=== PATIENT | female | born 1965 ===

== ENCOUNTER 2016-12-14 22:13 | Emergency (ER) | payer MEDICAID ==
[2016-12-14 22:19] VITALS: BP 153/77; PULSE 80; RESP 16; TEMP 97.9; O2SAT 98
[2016-12-14] MEDS ORDERED: Sodium Chloride 0.9% 1,000 ML IV STA (23:06)
--- NOTE | 2016-12-14 23:12 | ED PDOC ---
HPI: Abdomen Time Seen by Provider: 12/14/16 22:41 Chief Complaint (Nursing): Abdominal Pain Chief Complaint (Provider): abdominal pain History Per: Patient History/Exam Limitations: no limitations Onset/Duration Of Symptoms: Days (1) Current Symptoms Are (Timing): Still Present Location Of Pain/Discomfort: Diffuse Quality Of Discomfort: Cramping, "Pain" Associated Symptoms: Nausea, Diarrhea Additional History Per: Patient Additional Complaint(s): 51 y/o female presents for eval of diffuse abdominal pain x 1 day. PAtient states pain started after eating lunch. Associated nausea, diarrhea. Denies fever, vomiting, dysuria, hematuria, vaingal bleeding/discharge. Past Medical History Reviewed: Historical Data, Nursing Documentation, Vital Signs Vital Signs: Last Vital Signs Temp 97.9 F 12/14/16 22:17 Pulse 80 12/14/16 22:17 Resp 16 12/14/16 22:17 BP 153/77 H 12/14/16 22:17 Pulse Ox 98 12/14/16 23:12 - Medical History PMH: Depression, Hypothyroidism - Surgical History Other surgeries: hysterectomy - Family History Family History: States: Unknown Family Hx - Living Arrangements Living Arrangements: With Family - Home Medications Home Medications: Ambulatory Orders Medication Instructions Recorded Dicyclomine [Bentyl] 20 mg PO TID #21 tab 12/15/16 Ondansetron ODT [Zofran ODT] 4 mg PO Q8 PRN #10 odt 12/15/16 - Allergies Allergies/Adverse Reactions: Allergies Allergy/AdvReac Type Severity Reaction Status Date / Time No Known Allergies Allergy Verified 12/14/16 22:17 Review of Systems ROS Statement: Except As Marked, All Systems Reviewed And Found Negative Gastrointestinal: Positive for: Nausea, Abdominal Pain, Diarrhea Physical Exam - Reviewed Nursing Documentation Reviewed: Yes Vital Signs Reviewed: Yes - Physical Exam Appears: Positive for: Well, Non-toxic, No Acute Distress Head Exam: Positive for: ATRAUMATIC, NORMAL INSPECTION, NORMOCEPHALIC Skin: Positive for: Normal Color Eye Exam: Positive for: Normal appearance ENT: Positive for: Normal ENT Inspection Cardiovascular/Chest: Positive for: Regular Rate, Rhythm Respiratory: Positive for: Normal Breath Sounds Gastrointestinal/Abdominal: Positive for: Bowel Sounds, Soft, Tenderness ( diffuse discomfort deep palpation, worse RUQ; negative psoas, negative obturator ). Negative for: Distended, Guarding, Rebound Back: Positive for: Normal Inspection Extremity: Positive for: Normal ROM Neurologic/Psych: Positive for: Alert, Oriented - Laboratory Results Result Diagrams: 12/14/16 23:15 12/14/16 23:15 - ECG O2 Sat by Pulse Oximetry: 98 - Progress ED Course And Treament: labs, urine, IV fluids, IV zofran, PO bentyl EXAM: US Abdomen Limited, Right Upper Quadrant CLINICAL HISTORY: 51 years old, female; Pain; Abdominal pain; Epigastric; Additional info: Ruq pain TECHNIQUE: Real-time ultrasound of the right upper quadrant with image documentation. EXAM DATE/TIME: 12/15/2016 1:37 AM COMPARISON: No relevant prior studies available. FINDINGS: Gallbladder: Within normal limits in appearance, without evidence of gallstones , significant gallbladder wall thickening, or pericholecystic fluid. Reportedly negative sonographic Mendez's sign. Common bile duct: Does not appear abnormally dilated, measuring less than 6 mm in diameter. Liver: Within normal limits in appearance. Measures 14.8 cm in length. Normal flow seen in the main portal vein on color and Doppler imaging. Pancreas: Within normal limits in appearance. Right kidney: Within normal limits in appearance. Measures 10.8 cm in length. No evidence of hydronephrosis. Aorta: Imaged portions appear unremarkable. IVC: Imaged portions appear unremarkable. IMPRESSION: No significant abnormality identified. No evidence of gallstones or cholecystitis. EXAM: US Abdomen Limited, Appendix CLINICAL HISTORY: 51 years old, female; Pain; Abdominal pain; Other: Rlq; Additional info: Attn rlq TECHNIQUE: Real-time ultrasound of the right lower quadrant with image documentation. EXAM DATE/TIME: 12/15/2016 1:35 AM COMPARISON: No relevant prior studies available. FINDINGS: Multiple bowel loops are visualized in the right lower quadrant. No abnormal tubular, noncompressible structure is identified to suggest an inflamed appendix. No evidence of free fluid or focal fluid collections. Normal appendix is not seen, and therefore appendicitis is not entirely excluded based on this exam. If there is ongoing concern for appendicitis, consider CT scan. IMPRESSION: No sonographic evidence of appendicitis. Normal appendix was not visualized. See above for remaining findings. On re-eval, patient states pain improved. Tolerating PO without complaints of nausea, pain. Patient educated on findings, discharged with rx Bentyl. Advised follow up PMD 2-3 days. Fluids. [place] diet. Return to ED for worsening/concerning symptoms. Disposition - Clinical Impression Clinical Impression: Abdominal pain, Gastroenteritis - Patient ED Disposition Is Patient to be Admitted: No Counseled Patient/Family Regarding: Studies Performed, Diagnosis, Need For Followup, Rx Given - Disposition Disposition: Routine/Home Disposition Time: 02:52 Condition: IMPROVED Prescriptions: Dicyclomine [Bentyl] 20 mg PO TID #21 tab Ondansetron ODT [Zofran ODT] 4 mg PO Q8 PRN #10 odt PRN Reason: Nausea/Vomiting Instructions: Gastroenteritis (ED) Print Language: YAKUT
[2016-12-14 23:24] LABS: BASO # 0.1 K/uL (0.0-0.2); BASO % 1.1 % (0.0-2.0); EOS # 0.2 K/uL (0.0-0.7); EOS % 2.8 % (0.0-4.0); HEMATOCRIT 37.1 % (34.0-47.0); LYMPH # 2.5 K/uL (1.0-4.3); LYMPH % 28.3 % (20.0-40.0); MEAN CELL VOLUME 87.7 fl (81.0-99.0); MEAN CORPUSCULAR HEMOGLOBIN 29.5 pg (27.0-31.0); MEAN CORPUSCULAR HGB CONC 33.6 g/dL (33.0-37.0); MEAN PLATELET VOLUME 7.7 fl (7.2-11.7); MONO # 0.7 K/uL (0.0-0.8); NEUT # 5.2 K/uL (1.8-7.0); NEUT % 59.8 % (50.0-75.0); RED CELL DISTRIBUTION WIDTH 14.7 % (11.5-14.5); WHITE BLOOD COUNT 8.7 K/uL (4.8-10.8)
[2016-12-14 23:28] LABS: RBC URINE 2 /hpf (0-3); URINE BILIRUBIN NEGATIVE (NEGATIVE); URINE BLOOD NEGATIVE (NEGATIVE); URINE COLOR STRAW (YELLOW); URINE GLUCOSE (UA) NEG (Normal); URINE KETONE NEGATIVE (NEGATIVE); URINE LEUKOCYTE ESTERASE SMALL Leu/uL (Negative); URINE PROTEIN NEGATIVE (NEGATIVE); URINE UROBILINOGEN 0.2-1.0 mg/dL (0.2-1.0); WBC URINE 3 /hpf (0-5)
[2016-12-14 23:36] LABS: ALB/GLOB RATIO 1.5 (1.0-2.1); ALKALINE PHOSPHATASE 104 U/L (38-126); ALT/SGPT 34 U/L (9-52); AST/SGOT 25 U/L (14-36); BILIRUBIN,TOTAL 0.3 mg/dl (0.2-1.3); BLOOD UREA NITROGEN 21 mg/dl (7-17); CALCIUM 9.2 mg/dL (8.4-10.2); CARBON DIOXIDE 28 mmol/L (22-30); CHLORIDE 103 mmol/L (98-107); GFR AFRICAN-AMERICAN > 60; GLUCOSE,RANDOM 102 mg/dL (65-105); LIPASE 107 U/L (23-300); SODIUM 140 mmol/l (132-148); TOTAL PROTEIN 7.2 G/DL (6.3-8.2)
[2016-12-14 23:37] LABS: POTASSIUM 3.7 MMOL/L (3.6-5.0)
--- NOTE | 2016-12-15 02:39 | US ---
EXAM: US Abdomen Limited, Right Upper Quadrant CLINICAL HISTORY: 51 years old, female; Pain; Abdominal pain; Epigastric; Additional info: Ruq pain TECHNIQUE: Real-time ultrasound of the right upper quadrant with image documentation. EXAM DATE/TIME: 12/15/2016 1:37 AM COMPARISON: No relevant prior studies available. FINDINGS: Gallbladder: Within normal limits in appearance, without evidence of gallstones, significant gallbladder wall thickening, or pericholecystic fluid. Reportedly negative sonographic Mendez's sign. Common bile duct: Does not appear abnormally dilated, measuring less than 6 mm in diameter. Liver: Within normal limits in appearance. Measures 14.8 cm in length. Normal flow seen in the main portal vein on color and Doppler imaging. Pancreas: Within normal limits in appearance. Right kidney: Within normal limits in appearance. Measures 10.8 cm in length. No evidence of hydronephrosis. Aorta: Imaged portions appear unremarkable. IVC: Imaged portions appear unremarkable. IMPRESSION: No significant abnormality identified. No evidence of gallstones or cholecystitis. See above for remaining findings.
--- NOTE | 2016-12-15 02:41 | US ---
EXAM: US Abdomen Limited, Appendix CLINICAL HISTORY: 51 years old, female; Pain; Abdominal pain; Other: Rlq; Additional info: Attn rlq TECHNIQUE: Real-time ultrasound of the right lower quadrant with image documentation. EXAM DATE/TIME: 12/15/2016 1:35 AM COMPARISON: No relevant prior studies available. FINDINGS: Multiple bowel loops are visualized in the right lower quadrant. No abnormal tubular, noncompressible structure is identified to suggest an inflamed appendix. No evidence of free fluid or focal fluid collections. Normal appendix is not seen, and therefore appendicitis is not entirely excluded based on this exam. If there is ongoing concern for appendicitis, consider CT scan. IMPRESSION: No sonographic evidence of appendicitis. Normal appendix was not visualized. See above for remaining findings.
== END 2016-12-15 03:01 | disposition home or self-care (01) ==
LOC: H.ER 22:13
DX: K52.9 Noninfective gastroenteritis and colitis, unspecified (principal); E03.9 Hypothyroidism, unspecified; F32.9 Major depressive disorder, single episode, unspecified; R11.0 Nausea; R19.7 Diarrhea, unspecified

== ENCOUNTER 2017-02-02 11:05 | Emergency (ER) | payer OTHER, MEDICAID ==
[2017-02-02 11:45] VITALS: BP 131/92; PULSE 73; RESP 18; TEMP 98.4; O2SAT 100
--- NOTE | 2017-02-02 13:01 | ED PDOC ---
Upper Extremity Pain/Injury Time Seen by Provider: 02/02/17 11:59 Chief Complaint (Nursing): Upper Extremity Problem/Injury Chief Complaint (Provider): right wrist injury History Per: Patient History/Exam Limitations: no limitations Additional Complaint(s): 51yo9 [facility] Ed for eval of right wrist injury states at work the food cart fell over and she fell ontop of food cart injury her wrist wrist./ now co right wrist pain with range and to touch. denies numbness or tingling denies swelling right hand domiant. Past Medical History Reviewed: Historical Data, Nursing Documentation, Vital Signs Vital Signs: Last Vital Signs Temp 98.4 F 02/02/17 11:44 Pulse 73 02/02/17 11:44 Resp 18 02/02/17 11:44 BP 131/92 H 02/02/17 11:44 Pulse Ox 100 02/02/17 11:44 - Medical History PMH: Depression, Hypothyroidism - Family History Family History: States: Unknown Family Hx - Home Medications Home Medications: Ambulatory Orders Medication Instructions Recorded No Known Home Med 02/02/17 - Allergies Allergies/Adverse Reactions: Allergies Allergy/AdvReac Type Severity Reaction Status Date / Time No Known Allergies Allergy Verified 02/02/17 11:44 Review of Systems ROS Statement: Except As Marked, All Systems Reviewed And Found Negative Musculoskeletal: Positive for: Other (wrist pain) Physical Exam - Reviewed Nursing Documentation Reviewed: Yes Vital Signs Reviewed: Yes - Physical Exam Appears: Positive for: Well, Non-toxic, No Acute Distress Head Exam: Positive for: ATRAUMATIC, NORMAL INSPECTION, NORMOCEPHALIC Skin: Positive for: Normal Color, Warm, DRY Cardiovascular/Chest: Positive for: Regular Rate, Rhythm Respiratory: Positive for: CNT, Normal Breath Sounds Extremity: Positive for: Other (right wrist: pain with ?RAOM tendenress on touch raidal side. no deformity. ) Neurologic/Psych: Positive for: Alert, Oriented - ECG O2 Sat by Pulse Oximetry: 100 - Radiology X-Ray: Interpreted by Id X-Ray Interpretation: No Acute Disease Medical Decision Making Medical Decision Making: pt will be given volar velcro wrist splint. advised to f.u with pmd in repeat xray if 7-10 days if persistent. Disposition - Clinical Impression Clinical Impression: Wrist injury - Patient ED Disposition Is Patient to be Admitted: No Counseled Patient/Family Regarding: Studies Performed, Diagnosis, Need For Followup - Disposition Referrals: [facility] [Outside] Disposition: Routine/Home Disposition Time: 13:03 Condition: STABLE Instructions: Wrist Injury (ED) Forms: [facility] ED School/Work Excuse Print Language: SERBIAN
--- NOTE | 2017-02-02 13:08 | RAD ---
PROCEDURE: Right Wrist Radiographs. HISTORY: wrist injury COMPARISON: None. FINDINGS: BONES: Normal. No fracture. JOINTS: Normal. No dislocation. SOFT TISSUES: Normal. OTHER FINDINGS: None. IMPRESSION: Normal right wrist radiographs.
== END 2017-02-02 13:41 | disposition home or self-care (01) ==
LOC: H.ER 11:05
DX: S69.91XA Unspecified injury of right wrist, hand and finger(s), initial encounter (principal); W22.8XXA Striking against or struck by other objects, initial encounter; Y99.0 Civilian activity done for income or pay; E03.9 Hypothyroidism, unspecified; F32.9 Major depressive disorder, single episode, unspecified

== ENCOUNTER 2018-02-05 12:52 | Emergency (ER) | payer MEDICAID, OTHER ==
--- NOTE | 2018-02-05 13:59 | ED PDOC ---
HPI: Back Time Seen by Provider: 02/05/18 13:51 Chief Complaint (Nursing): Back Pain Chief Complaint (Provider): Back Pain History Per: Patient History/Exam Limitations: no limitations Onset/Duration Of Symptoms: Days (x7) Current Symptoms Are (Timing): Still Present Additional Complaint(s): 52 y/o female presents to the ED complaining of right sided flank pain associated with defecating, onset one week ago. Patient has a history of a hysterectomy for Fibroids in the past. Patient also notes nausea. Denies dysuria. PMD: None Provided Past Medical History Reviewed: Historical Data, Nursing Documentation, Vital Signs Vital Signs: Last Vital Signs Temp 98.6 F 02/05/18 13:09 Pulse 60 02/05/18 13:09 Resp BP 108/73 02/05/18 13:09 Pulse Ox 99 02/05/18 13:09 - Medical History PMH: Depression, Hypothyroidism - Surgical History Surgical History: No Surg Hx - Family History Family History: States: Unknown Family Hx - Home Medications Home Medications: Ambulatory Orders Medication Instructions Recorded Omeprazole Magnesium [Prilosec Otc] 20 mg PO DAILY #14 tablet. 02/05/18 Ranitidine HCl [Zantac 75] 75 mg PO Q12 PRN #10 tablet 02/05/18 - Allergies Allergies/Adverse Reactions: Allergies Allergy/AdvReac Type Severity Reaction Status Date / Time No Known Allergies Allergy Verified 02/02/17 11:44 Review of Systems ROS Statement: Except As Marked, All Systems Reviewed And Found Negative Gastrointestinal: Positive for: Nausea Genitourinary Female: Negative for: Dysuria Musculoskeletal: Positive for: Back Pain (right sided flank painwhen defecating ) Physical Exam - Reviewed Nursing Documentation Reviewed: Yes Vital Signs Reviewed: Yes - Physical Exam Appears: Positive for: No Acute Distress Head Exam: Positive for: ATRAUMATIC Skin: Positive for: Normal Color Neck: Positive for: Normal, Painless ROM Cardiovascular/Chest: Negative for: Bradycardia, Tachycardia Respiratory: Negative for: Accessory Muscle Use, Respiratory Distress Gastrointestinal/Abdominal: Positive for: Normal Exam, Tenderness (Epigastric and right lower quadrant and right upper quadrant tenderness. ) Back: Positive for: Normal Inspection, Other (Right flank tenderness. ). Negative for: L CVA Tenderness, R CVA Tenderness Extremity: Positive for: Normal ROM. Negative for: Deformity Neurologic/Psych: Positive for: Alert, Oriented (x3). Negative for: Motor/ Sensory Deficits - Laboratory Results Result Diagrams: 02/05/18 14:10 02/05/18 14:10 Urine POC: Negative Urine dip results: Positive for: Leukocyte Esterase. Negative for: Blood, Nitrate, Ketones, Glucose, Bilirubin, Protein - ECG O2 Sat by Pulse Oximetry: 99 (RA) Pulse Ox Interpretation: Normal - Progress ED Course And Treament: ct abd/pelvis: IMPRESSION: No acute findings related to/accounting for the clinical presentation. Additional benign and/or incidental findings described above. pepcid 20 mg iv x 1 dose zofran 4 mg iv x 1 dose Medical Decision Making Medical Decision Making: Time: 1410 Plan: -- CMP -- Lipase -- ED Urine Dipstick -- CBC with differentials -- Pepcid 20 mg IVP -- Zofran Inj -- Urine Culture -- Urinalysis -- CT Abd/Pelvis w/o contrast Time: 1517 CT ABD/PELVIS RESULTS FINDINGS: LOWER THORAX: Unremarkable. LIVER: Contrast-enhancing mass near the dome of the diaphragm left hepatic lobe likely hemangioma. This measures 1.8 x 2.7 cm. Otherwise unremarkable liver without ductal dilatation. GALLBLADDER AND BILE DUCTS: Unremarkable. PANCREAS: Unremarkable. No gross lesion or ductal dilatation. SPLEEN: Unremarkable. ADRENALS: Unremarkable. No mass. KIDNEYS AND URETERS: Unremarkable. No hydronephrosis. No solid mass. VASCULATURE: Unremarkable. No aortic aneurysm. BOWEL: Unremarkable. No obstruction. No gross mural thickening. APPENDIX: A normal appendix is visualized axial REUBEN series 3/ images 87-104. PERITONEUM: Unremarkable. No free fluid. No free air. LYMPH NODES: Unremarkable. No enlarged lymph nodes. BLADDER: Unremarkable. REPRODUCTIVE: Unremarkable. BONES: No acute fracture. OTHER FINDINGS: None. IMPRESSION: No acute findings related to/accounting for the clinical presentation. Additional benign and/or incidental findings described above. Scribe Attestation: Documented by Sterling Soto, acting as a scribe for Beata Fragoso PA-C. Provider Scribe Attestation: All medical record entries made by the Scribe were at my direction and personally dictated by me. I have reviewed the chart and agree that the record accurately reflects my personal performance of the history, physical exam, medical decision making, and the department course for this patient. I have also personally directed, reviewed, and agree with the discharge instructions and disposition. Disposition - Clinical Impression Clinical Impression: Gastritis - Patient ED Disposition Is Patient to be Admitted: No - Disposition Disposition: Routine/Home Disposition Time: 17:57 Condition: FAIR Prescriptions: Omeprazole Magnesium [Prilosec Otc] 20 mg PO DAILY #14 tablet. Ranitidine HCl [Zantac 75] 75 mg PO Q12 PRN #10 tablet PRN Reason: Pain, Severe (8-10) Instructions: Gastritis (DC) Forms: [facility] ED School/Work Excuse
[2018-02-05] MEDS ORDERED: Iohexol 240 (50 ml) PO STA (14:23)
[2018-02-05] MEDS ORDERED: Iohexol 240 (50 ml) ONE (14:59)
[2018-02-05 15:14] LABS: BASO % 0.7 % (0.0-2.0); EOS # 0.2 K/uL (0.0-0.7); EOS % 2.4 % (0.0-4.0); HEMOGLOBIN 12.9 g/dL (12.0-16.0); LYMPH % 31.6 % (20.0-40.0); MEAN CELL VOLUME 88.5 fl (81.0-99.0); MEAN CORPUSCULAR HEMOGLOBIN 30.5 pg (27.0-31.0); MEAN CORPUSCULAR HGB CONC 34.5 g/dL (33.0-37.0); MEAN PLATELET VOLUME 8.3 fl (7.2-11.7); MONO # 0.4 K/uL (0.0-0.8); MONO % 6.9 % (0.0-10.0); NEUT # 3.6 K/uL (1.8-7.0); NEUT % 58.4 % (50.0-75.0); NRBC % 0.2 % (0.0-0.0); RBC 4.24 Mil/uL (3.80-5.20); RED CELL DISTRIBUTION WIDTH 14.2 % (11.5-14.5); WHITE BLOOD COUNT 6.2 K/uL (4.8-10.8)
[2018-02-05 15:37] LABS: ALB/GLOB RATIO 1.4 (1.0-2.1); ALBUMIN 4.4 g/dL (3.5-5.0); CALCIUM 9.6 mg/dL (8.4-10.2); GFR NON-AFRICAN AMERICAN > 60; LIPASE 98 U/L (23-300)
[2018-02-05 15:38] LABS: ALT/SGPT 32 U/L (9-52); AST/SGOT 38 U/L (14-36); BLOOD UREA NITROGEN 21 mg/dl (7-17)
[2018-02-05] MEDS ORDERED: Sodium Chloride 0.9% 50 ML IV ONE (16:24)
[2018-02-05] MEDS ORDERED: Iohexol 300 100 ML IJ ONE (16:24)
--- NOTE | 2018-02-05 17:14 | CT ---
Date of service: 02/05/2018 PROCEDURE: CT Abdomen and Pelvis with contrast HISTORY: r/o appendicitis COMPARISON: None. TECHNIQUE: Contrast dose: 95 cc Omnipaque 300 Radiation dose: Total exam DLP = 311.82. MGy-cm. This CT exam was performed using one or more of the following dose reduction techniques: Automated exposure control, adjustment of the mA and/or kV according to patient size, and/or use of iterative reconstruction technique. FINDINGS: LOWER THORAX: Unremarkable. LIVER: Contrast-enhancing mass near the dome of the diaphragm left hepatic lobe likely hemangioma. This measures 1.8 x 2.7 cm. Otherwise unremarkable liver without ductal dilatation. GALLBLADDER AND BILE DUCTS: Unremarkable. PANCREAS: Unremarkable. No gross lesion or ductal dilatation. SPLEEN: Unremarkable. ADRENALS: Unremarkable. No mass. KIDNEYS AND URETERS: Unremarkable. No hydronephrosis. No solid mass. VASCULATURE: Unremarkable. No aortic aneurysm. BOWEL: Unremarkable. No obstruction. No gross mural thickening. APPENDIX: A normal appendix is visualized axial REUBEN series 3/ images 87-104. PERITONEUM: Unremarkable. No free fluid. No free air. LYMPH NODES: Unremarkable. No enlarged lymph nodes. BLADDER: Unremarkable. REPRODUCTIVE: Unremarkable. BONES: No acute fracture. OTHER FINDINGS: None. IMPRESSION: No acute findings related to/accounting for the clinical presentation. Additional benign and/or incidental findings described above.
[2018-02-05 18:05] LABS: SQUAMOUS EPITHIAL < 1 /hpf (0-5); URINE BACTERIA RARE (<OCC); URINE BILIRUBIN NEGATIVE (NEGATIVE); URINE BLOOD NEGATIVE (NEGATIVE); URINE CLARITY CLEAR (Clear); URINE COLOR STRAW (YELLOW); URINE GLUCOSE (UA) NEG (Normal); URINE LEUKOCYTE ESTERASE TRACE Leu/uL (Negative); URINE PROTEIN NEGATIVE (NEGATIVE); URINE UROBILINOGEN 0.2-1.0 mg/dL (0.2-1.0)
[2018-02-05 18:26] VITALS: BP 118/73; PULSE 67; RESP 16; TEMP 98.2; O2SAT 98
== END 2018-02-05 18:26 | disposition home or self-care (01) ==
LOC: H.ER 12:52
DX: K29.70 Gastritis, unspecified, without bleeding (principal)
CPT/HCPCS: 74177; 80053; 81003; 81025; 83690; 85025; 87086; 96374; 96375; 99283; J2405; Q9966; Q9967

== ENCOUNTER 2018-08-12 18:04 | Emergency (ER) | payer OTHER ==
[2018-08-12 18:31] VITALS: RESP 18; TEMP 98.3; O2SAT 100
[2018-08-12] MEDS ORDERED: Lidocaine 5% Patch TD STA (18:58)
--- NOTE | 2018-08-12 19:04 | ED PDOC ---
HPI: Back Time Seen by Provider: 08/12/18 18:35 Chief Complaint (Nursing): Lower Extremity Problem/Injury History Per: Patient Additional Complaint(s): Pt. states on Monday while at work she was pushing a heavy food cart and developed R sided lower back pain radiating down the R thigh. Reports pain is constant and worsens when lying supine and when walking. Has been taking Advil 400mg without relief. Last dose was taken this morning. Today while at work pain has become worse. Denies blunt trauma, weakness, dysuria, hematuria, incontinence, fever, chills, illicit drug use, abd pain. Past Medical History Reviewed: Historical Data, Nursing Documentation, Vital Signs Vital Signs: Last Vital Signs Temp 98.3 F 08/12/18 18:28 Pulse 76 08/12/18 18:28 Resp 18 08/12/18 18:28 BP 120/82 08/12/18 18:28 Pulse Ox 100 08/12/18 18:28 - Medical History PMH: Depression, Hypothyroidism - Surgical History Surgical History: No Surg Hx - Family History Family History: States: No Known Family Hx - Home Medications Home Medications: Ambulatory Orders Medication Instructions Recorded Omeprazole Magnesium [Prilosec Otc] 20 mg PO DAILY #14 tablet. 02/05/18 Ranitidine HCl [Zantac 75] 75 mg PO Q12 PRN #10 tablet 02/05/18 Cyclobenzaprine [Cyclobenzaprine 10 mg PO Q8 PRN #10 tab 08/12/18 HCl] Naproxen [Naprosyn] 500 mg PO BID PRN #10 tab 08/12/18 - Allergies Allergies/Adverse Reactions: Allergies Allergy/AdvReac Type Severity Reaction Status Date / Time No Known Allergies Allergy Verified 08/12/18 18:28 Review of Systems ROS Statement: Except As Marked, All Systems Reviewed And Found Negative Musculoskeletal: Positive for: Back Pain Physical Exam - Physical Exam Appears: Positive for: Well, Non-toxic, No Acute Distress Skin: Positive for: Normal Color, Warm. Negative for: Rash Eye Exam: Positive for: Normal appearance Gastrointestinal/Abdominal: Positive for: Soft. Negative for: Tenderness Back: Positive for: Normal Inspection, Muscle Spasm (R sided paralumbar tenderness with spasm). Negative for: L CVA Tenderness, R CVA Tenderness, Vertebral Tenderness Extremity: Positive for: Normal ROM, Other (SLR positive in R leg at about 30 degrees; SLR negative in L leg). Negative for: Calf Tenderness (b/l) Neurologic/Psych: Positive for: Alert, Oriented (x3) - ECG O2 Sat by Pulse Oximetry: 100 - Progress ED Course And Treament: Toradol 30mg IM, lidoderm patch, LS spine x-ray ordered. Re-evaluation Time: 20:00 Condition: Re-examined, Improved Disposition - Clinical Impression Clinical Impression: Sciatica - Patient ED Disposition Is Patient to be Admitted: No - Disposition [facility] Disposition: Routine/Home Disposition Time: 20:01 Condition: IMPROVED Additional Instructions: FOLLOW UP WITH YOUR DOCTOR FOR FURTHER EVALUATION RETURN TO ED IMMEDIATELY IF SYMPTOMS WORSEN JALEN LYNN, thank you for letting us take care of you today. Your provider was Melissa Colindres MD and you were treated for RT LEG PAIN. The emergency medical care you received today was directed at your acute symptoms. If you were prescribed any medication, please fill it and take as directed. It may take several days for your symptoms to resolve. Return to the Emergency Department if your symptoms worsen, do not improve, or if you have any other problems. Please contact your doctor or call one of the physicians/clinics you have been referred to that are listed on the Patient Visit Information form that is included in your discharge packet. Bring any paperwork you were given at discharge with you along with any medications you are taking to your follow up visit. Our treatment cannot replace ongoing medical care by a primary care provider outside of the emergency department. [facility] to [facility] part of your care today. If you had an X-Ray or CT scan: A Radiologist will review the ED reading if any change in treatment is needed we will contact you. If you had a blood, urine, or wound culture: It will take several days for the results, if any change in treatment is needed we will contact you. If you had an STI test: It will take 48 hours for the results. Please call after 1 week if you have not heard back. Prescriptions: Cyclobenzaprine [Cyclobenzaprine HCl] 10 mg PO Q8 PRN #10 tab PRN Reason: Muscle Spasm Naproxen [Naprosyn] 500 mg PO BID PRN #10 tab PRN Reason: Pain Instructions: Sciatica (DC), Sciatica Exercises Forms: [facility] ([place]), [facility] ED School/Work Excuse
[2018-08-12] MEDS ORDERED: Lidocaine 5% Patch TD ONE (19:40)
[2018-08-12 19:51] VITALS: BP 138/83; PULSE 77
--- NOTE | 2018-08-13 08:27 | RAD ---
Date of service: 08/12/2018 PROCEDURE: Radiographs of the Lumbar Spine. HISTORY: pain COMPARISON: No prior. FINDINGS: BONES: Normal alignment. No listhesis. No fracture. DISC SPACES: Mild multilevel spondylosis appreciated diffusely. Incidental marked disc height loss seen at T11-12 with accompanying endplate sclerosis and spondylosis. OTHER FINDINGS: None. IMPRESSION: No acute fracture or spondylolisthesis appreciable. Mild multilevel degenerative disease, incidentally advanced at T11-12 disc interspace level. MRI may be utilized for further characterization if clinically warranted.
== END 2018-08-12 20:32 | disposition home or self-care (01) ==
LOC: H.ER 18:04
DX: M54.30 Sciatica, unspecified side (principal); Z86.59 Personal history of other mental and behavioral disorders; X50.0XXA Overexertion from strenuous movement or load, initial encounter; E03.9 Hypothyroidism, unspecified
CPT/HCPCS: 72100; 81025; 96372; 99284; J1885

== ENCOUNTER 2018-09-11 14:24 | Emergency (ER) | payer SELFPAY ==
[2018-09-11 14:38] VITALS: BP 136/85; PULSE 71; RESP 16; TEMP 99.2; O2SAT 98
--- NOTE | 2018-09-11 16:39 | RAD ---
Date of service: 09/11/2018 PROCEDURE: Right Knee Radiographs. HISTORY: s/p fall with pain COMPARISON: None. FINDINGS: BONES: Bone alignment and mineralization are normal. There is no acute displaced fracture or bone destruction. JOINTS: There is mild tricompartmental degenerative osteoarthrosis with reduced joint spaces, marginal osteophytes and tibial spiking, worse in the medial compartment. JOINT EFFUSION: There is a small suprapatellar joint effusion. OTHER FINDINGS: There is mild suprapatellar soft tissue swelling. IMPRESSION: No acute fracture or dislocation. Small suprapatellar joint effusion.
--- NOTE | 2018-09-11 16:51 | CT ---
Date of service: 09/11/2018 PROCEDURE: CT Lumbar Spine without contrast HISTORY: RLE weakness and back pain COMPARISON: None available. TECHNIQUE: Axial computed tomography images were obtained of the lumbar spine without the use of intravenous contrast. Coronal and sagittal reformatted images were created and reviewed. Radiation dose: Total exam DLP = 296.4 mGy-cm. This CT exam was performed using one or more of the following dose reduction techniques: Automated exposure control, adjustment of the mA and/or kV according to patient size, and/or use of iterative reconstruction technique. FINDINGS: VERTEBRAE: There is mild levocurvature in the lumbar spine which may be positional. There is normal alignment of the lumbar vertebral bodies. There is normal lumbar lordosis. There is no acute fracture, spondylolysis or spondylolisthesis. Bone mineralization is normal. DISC SPACES: There is mild reduced disc height at L5-S1. The remaining disc heights are maintained. DISCS/SPINAL CANAL/NEURAL FORAMINA: Evaluation of the discs and spinal canal is limited on noncontrast CT examination. Allowing for this, L1-2: Mild posterior disc bulge without neural foraminal narrowing or spinal canal stenosis. L2-3: Mild posterior disc bulge without neural foraminal narrowing or spinal canal stenosis. L3-4: Posterior disc bulge and mild ligamentum flavum infolding without central spinal canal stenosis. Mild bilateral facet arthropathy contribute to mild neural foraminal narrowing. L4-5: Diffuse posterior disc bulge in conjunction with moderate ligamentum flavum infolding result in mild spinal canal stenosis. Severe right and moderate left facet arthropathy contribute to moderate to severe neural foraminal narrowing, worse on the right. L5-S1: Left posterolateral and foraminal disc protrusions likely impinge on the traversing left L5 nerve root. No spinal canal stenosis. PARASPINAL SOFT TISSUES: The paraspinous soft tissues are normal. Imaged portion of the retroperitoneum is within normal limits. OTHER FINDINGS: There are no pathologic soft tissue calcifications. Both sacroiliac joints are normal. IMPRESSION: 1. No acute fracture, spondylolysis or spondylolisthesis. 2. Mild multilevel degenerative disc disease, worse at L5-S1 with left posterolateral and foraminal disc protrusions which likely impinge on exiting L5 nerve root. No central spinal canal stenosis.
--- NOTE | 2018-09-11 16:52 | ED PDOC ---
Lower Extremity Pain/Injury Time Seen by Provider: 09/11/18 15:14 Chief Complaint (Nursing): Lower Extremity Problem/Injury Chief Complaint (Provider): Right Knee Pain / Back Pain History Per: Patient History/Exam Limitations: no limitations Onset/Duration Of Symptoms: Hrs (earlier today) Current Symptoms Are (Timing): Still Present Additional Complaint(s): 52 year old female with pmhx of hypothyroidism and hyperlipidemia presents to the ED for evaluation of right knee pain s/p falling today. Patient reports that several weeks ago she began having back pain and was seen in the ED where she was given pain medication and sent home. She states that the pain persisted despite being on a Medrol Dosepak and intermittent Advil. Additionally, she notes right mild lower extremity weakness began, and today, secondary to the back pain and leg weakness, her knee buckled causing her to fall down a few steps landing on the right knee. Currently, she reports trouble with extending the knee secondary to pain. Otherwise, denies numbness and tingling. PMD: none provided Past Medical History Reviewed: Historical Data, Nursing Documentation, Vital Signs Vital Signs: Last Vital Signs Temp 99.2 F 09/11/18 14:36 Pulse 71 09/11/18 14:36 Resp 16 09/11/18 14:36 BP 136/85 09/11/18 14:36 Pulse Ox 98 09/11/18 14:36 - Medical History PMH: Depression, Hyperlipidemia, Hypothyroidism - Surgical History Surgical History: - Family History Family History: States: Unknown Family Hx - Social History Current smoker - smoking cessation education provided: No Alcohol: None Drugs: Denies - Home Medications Home Medications: Ambulatory Orders Medication Instructions Recorded Omeprazole Magnesium [Prilosec Otc] 20 mg PO DAILY #14 tablet. 02/05/18 Ranitidine HCl [Zantac 75] 75 mg PO Q12 PRN #10 tablet 02/05/18 Cyclobenzaprine [Cyclobenzaprine 10 mg PO Q8 PRN #10 tab 08/12/18 HCl] Naproxen [Naprosyn] 500 mg PO BID PRN #10 tab 08/12/18 Cyclobenzaprine [Cyclobenzaprine 10 mg PO Q8 PRN 7 Days tab 09/11/18 HCl] Ibuprofen [Motrin Tab] 800 mg PO Q6 PRN 7 Days tab 09/11/18 - Allergies Allergies/Adverse Reactions: Allergies Allergy/AdvReac Type Severity Reaction Status Date / Time No Known Allergies Allergy Verified 09/11/18 14:35 Review of Systems ROS Statement: Except As Marked, All Systems Reviewed And Found Negative Musculoskeletal: Positive for: Back Pain, Other (right knee pain and weakness) Neurological: Negative for: Numbness, Other (tingling) Physical Exam - Reviewed Nursing Documentation Reviewed: Yes Vital Signs Reviewed: Yes - Physical Exam Appears: Positive for: Uncomfortable Pulses-Dorsalis Pedis (L): 2+ Pulses-Dorsalis Pedis (R): 2+ Back: Positive for: Normal Inspection, Other (tenderness to palpation of lower lumbar spine). Negative for: L CVA Tenderness, R CVA Tenderness Extremity: Positive for: Tenderness (right knee: mild swelling to lateral aspects with tenderness to palpation but no ecchymosis or deformity), Capillary Refill (less than two seconds). Negative for: Normal ROM (decreased ROM with flexion and extension of right knee) - ECG O2 Sat by Pulse Oximetry: 98 (RA) Pulse Ox Interpretation: Normal Medical Decision Making Medical Decision Making: Time: 1529 Initial Impression: left knee pain, back pain Initial Plan: --CT lumbar spine --Left knee XR --Toradol 30mg IM 1633 Knee XR FINDINGS: BONES: Bone alignment and mineralization are normal. There is no acute displaced fracture or bone destruction. JOINTS: There is mild tricompartmental degenerative osteoarthrosis with reduced joint spaces, marginal osteophytes and tibial spiking, worse in the medial compartment. JOINT EFFUSION: There is a small suprapatellar joint effusion. OTHER FINDINGS: There is mild suprapatellar soft tissue swelling. IMPRESSION: No acute fracture or dislocation. Small suprapatellar joint effusion. [address] FINDINGS: VERTEBRAE: There is mild levocurvature in the lumbar spine which may be positional. There is normal alignment of the lumbar vertebral bodies. There is normal lumbar lordosis. There is no acute fracture, spondylolysis or spondylolisthesis. Bone mineralization is normal. DISC SPACES: There is mild reduced disc height at L5-S1. The remaining disc heights are maintained. DISCS/SPINAL CANAL/NEURAL FORAMINA: Evaluation of the discs and spinal canal is limited on noncontrast CT examination. Allowing for this, L1-2: Mild posterior disc bulge without neural foraminal narrowing or spinal canal stenosis. L2-3: Mild posterior disc bulge without neural foraminal narrowing or spinal canal stenosis. L3-4: Posterior disc bulge and mild ligamentum flavum infolding without central spinal canal stenosis. Mild bilateral facet arthropathy contribute to mild neural foraminal narrowing. L4-5: Diffuse posterior disc bulge in conjunction with moderate ligamentum flavum infolding result in mild spinal canal stenosis. Severe right and moderate left facet arthropathy contribute to moderate to severe neural foraminal narrowing, worse on the right. L5-S1: Left posterolateral and foraminal disc protrusions likely impinge on the traversing left L5 nerve root. No spinal canal stenosis. PARASPINAL SOFT TISSUES: The paraspinous soft tissues are normal. Imaged portion of the retroperitoneum is within normal limits. OTHER FINDINGS: There are no pathologic soft tissue calcifications. Both sacroiliac joints are normal. IMPRESSION: 1. No acute fracture, spondylolysis or spondylolisthesis. 2. Mild multilevel degenerative disc disease, worse at L5-S1 with left posterolateral and foraminal disc protrusions which likely impinge on exiting L5 nerve root. No central spinal canal stenosis. 1739 Patient reevaluated. Pain is slightly improved but still unable to bend knee. Tylenol 975mg PO ordered. CT Knee ordered as patient unable to bear weight and patient is to be reevaluated. 1835 CT knee: FINDINGS: BONES: There is no acute displaced fracture. Bone alignment is normal. There is mild diffuse bone demineralization. A small area of sclerosis in the femoral intercondylar region is statistically most compatible with a bone island. There is mild tricompartmental degenerative osteoarthrosis with reduced joint spaces, marginal osteophytes and tibial spiking, worse in the medial compartment. There is a small suprapatellar joint effusion. SOFT TISSUES: The periarticular muscles are normal. No significant soft tissue swelling. IMPRESSION: No acute displaced fracture or dislocation. Mild tricompartmental degenerative osteoarthrosis, worse in the medial compartment. Small suprapatellar joint effusion. Scribe Attestation: Documented by Rena Tony, acting as a scribe for Liz Huff PA-C. Provider Scribe Attestation: All medical record entries made by the Scribe were at my direction and personally dictated by me. I have reviewed the chart and agree that the record accurately reflects my personal performance of the history, physical exam, medical decision making, and the department course for this patient. I have also personally directed, reviewed, and agree with the discharge instructions and disposition. Disposition - Clinical Impression Clinical Impression: Knee sprain - Patient ED Disposition Is Patient to be Admitted: No Counseled Patient/Family Regarding: Studies Performed, Diagnosis, Need For Followup - Disposition Referrals: [facility] [place] [Outside] [facility] [place] [Outside] Disposition: Routine/Home Disposition Time: 20:10 Condition: STABLE Additional Instructions: Follow up with orthopedist for persistent knee pain. Take Ibuprofen for knee pain or Flexeril for back pain. Follow up with neurosurgeon as needed for persistent back pain. Use knee brace for comfort. Prescriptions: Cyclobenzaprine [Cyclobenzaprine HCl] 10 mg PO Q8 PRN 7 Days tab PRN Reason: Muscle Spasm Ibuprofen [Motrin Tab] 800 mg PO Q6 PRN 7 Days tab PRN Reason: Pain, Moderate (4-7) Instructions: Knee Sprain (DC) Forms: [employer] ([place]wana), [facility] ED School/Work Excuse Print Language: MONTSERRATIAN
--- NOTE | 2018-09-11 18:40 | CT ---
Date of service: 09/11/2018 PROCEDURE: CT of the Right knee. HISTORY: evaluate for occult fracture COMPARISON: Radiographs performed earlier the same day TECHNIQUE: Contiguous axial images of the right knee were obtained. Coronal and sagittal reformats were generated. Radiation dose: Total exam DLP = 272.53 mGy-cm. This CT exam was performed using one or more of the following dose reduction techniques: Automated exposure control, adjustment of the mA and/or kV according to patient size, and/or use of iterative reconstruction technique. FINDINGS: BONES: There is no acute displaced fracture. Bone alignment is normal. There is mild diffuse bone demineralization. A small area of sclerosis in the femoral intercondylar region is statistically most compatible with a bone island. There is mild tricompartmental degenerative osteoarthrosis with reduced joint spaces, marginal osteophytes and tibial spiking, worse in the medial compartment. There is a small suprapatellar joint effusion. SOFT TISSUES: The periarticular muscles are normal. No significant soft tissue swelling. IMPRESSION: No acute displaced fracture or dislocation. Mild tricompartmental degenerative osteoarthrosis, worse in the medial compartment. Small suprapatellar joint effusion.
== END 2018-09-11 20:23 | disposition home or self-care (01) ==
LOC: H.ER 14:24
DX: S83.91XA Sprain of unspecified site of right knee, initial encounter (principal); W19.XXXA Unspecified fall, initial encounter
CPT/HCPCS: 72131; 73562; 73700; 96372; 99283; J1885